=== PATIENT | male | born 1980 | race Caucasian/White ===

== ENCOUNTER 2018-03-23 11:35 | Inpatient (IN) | payer BC ==
[~2018-03-23] VITALS: Ht 180.3 cm; Wt 71.0 kg
[2018-03-23] MEDS ORDERED: clonazePAM 1 MG TAB PO ONE ×3 (12:00→19:15)
[2018-03-23] MEDS ORDERED: diphenhydrAMINE INJ 50MG/ML VIAL (J1200) As Ordered ONE (12:39)
[2018-03-23] MEDS ORDERED: HALOPERIDOL 5 MG/ML VIAL (J1630) As Ordered ONE (12:39)
[2018-03-23] MEDS ORDERED: diphenhydrAMINE INJ 50MG/ML VIAL (J1200) IM ONE (12:45)
[2018-03-23] MEDS ORDERED: HALOPERIDOL 5 MG/ML VIAL (J1630) IM ONE (12:45)
[2018-03-23 13:00] LABS: HEMATOCRIT 50.8 % (42.0-52.0); HEMOGLOBIN 17.1 g/dl (13.5-17.5); MEAN CORPUSCULAR HEMOGLOBIN 30.3 pg (27.0-33.0); MEAN CORPUSCULAR HGB CONC 33.7 g/dl (32.0-36.5); MEAN CORPUSCULAR VOLUME 90.1 fl (80.0-96.0); PLATELET COUNT, AUTOMATED 257 10^3/uL (150-450); RED BLOOD COUNT 5.64 10^6/uL (4.30-6.10); WHITE BLOOD COUNT 9.7 10^3/uL (4.0-10.0)
[2018-03-23 13:40] LABS: ACETAMINOPHEN LEVEL < 2.0 UG/ML (10.0-30.0); ALBUMIN 4.8 GM/DL (3.2-5.2); ALT/SGPT 28 U/L (12-78); BILIRUBIN,DIRECT 0.2 MG/DL (0.0-0.2); BILIRUBIN,TOTAL 0.8 MG/DL (0.2-1.0); BLOOD UREA NITROGEN 15 MG/DL (7-18); CARBON DIOXIDE LEVEL 16 MEQ/L (21-32); CHLORIDE LEVEL 104 MEQ/L (98-107); ETHYL ALCOHOL (ETHANOL) < 0.003 % (0.000-0.010); GLOMERULAR FILTRATION RATE > 60.0 (>60); GLUCOSE, FASTING 121 MG/DL (70-100); POTASSIUM SERUM 3.9 MEQ/L (3.5-5.1); SALICYLATE LEVEL 4.2 MG/DL (5.0-30.0); SODIUM LEVEL 139 MEQ/L (136-145); TOTAL PROTEIN 7.9 GM/DL (6.4-8.2)
[2018-03-23 16:30] LABS: VENOUS BASE EXCESS -2.7 (-2.0-2.0); VENOUS HCO3 21.8 MEQ/L (23.0-27.0); VENOUS O2 SATURATION 97.8 % (60.0-80.0); VENOUS PARTIAL PRESSURE CO2 37.5 mmHg (38.0-50.0); VENOUS PARTIAL PRESSURE O2 107.8 mmHg (30.0-50.0); VENOUS PH 7.383 UNITS (7.330-7.430); VENOUS STANDARD HCO3 22.3 MEQ/L
[2018-03-23] MEDS ORDERED: diphenhydrAMINE 25 MG CAP PO ONE (16:30)
[2018-03-23 16:54] LABS: AMPHETAMINES LEVEL URINE NEGATIVE (NEGATIVE); BARBITURATES URINE NEGATIVE (NEGATIVE); BENZODIAZEPINES URINE POSITIVE (NEGATIVE); CANNABINOIDS URINE POSITIVE (NEGATIVE); COCAINE METABOLITE URINE NEGATIVE (NEGATIVE); METHADONE URINE NEGATIVE (NEGATIVE); OPIATES URINE NEGATIVE (NEGATIVE); PHENCYCLIDINE URINE NEGATIVE (NEGATIVE)
[2018-03-23 19:01] LABS: BLOOD UREA NITROGEN 17 MG/DL (7-18); CALCIUM LEVEL 8.8 MG/DL (8.5-10.1); CARBON DIOXIDE LEVEL 27 MEQ/L (21-32); CHLORIDE LEVEL 105 MEQ/L (98-107); GLOMERULAR FILTRATION RATE > 60.0 (>60); GLUCOSE, FASTING 90 MG/DL (70-100); POTASSIUM SERUM 4.3 MEQ/L (3.5-5.1); SODIUM LEVEL 140 MEQ/L (136-145)
[2018-03-23] MEDS ORDERED: NICOTINE 21MG/24HR 1 EA TRANSDERMAL TD ONE (19:45)
[2018-03-23] MEDS ORDERED: NICOTINE POLACRILEX 2 MG GUM PO ONE (19:45)
[2018-03-23] MEDS ORDERED: OLANZapine ORAL DISINTEGRATING TAB 5MG PO PRN (20:00)
[2018-03-23] MEDS ORDERED: MAALOX 30 ML SUSP *UDC PO PRN (20:00)
[2018-03-23] MEDS ORDERED: MOM 30ML SUSPENSION UDC PO PRN (20:00)
[2018-03-23 23:31] VITALS: BP 110/67
[2018-03-24] MEDS: LORazepam 2 MG TAB PO PRN ×2 (05:52→20:17)
[2018-03-24] MEDS: NICOTINE 21MG/24HR 1 EA TRANSDERMAL TD SCH (08:29)
--- NOTE | 2018-03-24 10:27 | HPEPDOC ---
[facility] Medical History & Physical Date of Admission Mar 23, 2018 History and Physical PCP: None ATTENDING: Dr. Alfredo Wakefield HPI: 37 yo M admitted to [facility] for unspecified psychosis, being medically examined today. No acute medical complaints today. Denies any fevers, chills, weakness, fatigue, MCCORMICK, CP, SOB, cough, palpitations, abdominal pain, N/V/D or changes in bowel or bladder habits. PMHx: Anxiety Depression History of SI PSHX: Denies SOCHX: Resides in: [facility] Marital Status: Kids: 2 Employment: [employer] Tobacco use: 2-1/2 packs per day ETOH: 3 drinks per month Illicit Drugs: Marijuana IV Drug Use: Denies Tattoos done unprofessionally: Denies FAMHX: Mother: Alive, well Father: Alive, well Siblings: Alive, well Children: Alive, well Unexpected deaths due to medical reasons: None. ROS: As noted in HPI, otherwise 11pt ROS of systems reviewed and unremarkable. PE: GEN: 37 yo M, appears stated age. Appears unkept. No acute distress. Alert and oriented x 3. Avoids eye contact. HEENT: Normocephalic, atraumatic. Pupils are equal, round, and reactive to light. Extraocular movements are intact. No nystagmus appreciated. Sclera are nonicteric. Conjunctiva without injection. Nose midline. Nasal turbinates without bogginess. EACs both patent BL. TMs both visualized and aguilar with good cone of light, no bulging or erythema. No facial asymmetry. Moist mucous membranes. Dentition fair. Pharynx pink and moist, no cobblestoning. Neck supple, trachea midline. No lymphadenopathy or thyromegaly appreciated. CHEST: Regular rate and rhythm, +S1, +S2 LUNGS: Clear to auscultation bilaterally. No wheezes, rales, or rhonchi. Breathing appears symmetric and easy. Patient is speaking in full sentences. No accessory muscle use. ABD: Round, soft, non-tender, non-distended. +Bowel sounds throughout. No rebound or guarding. No costovertebral angle tenderness. EXT: Pulses 2+ bilaterally dorsalis pedis and radial. No lower extremity edema appreciated. SKIN: [place], dry, warm. Capillary refill <2sec. No rashes. NEURO: Alert and oriented x 3. Cranial nerves III-XII are intact. No focal deficits appreciated. EKG: Pending A&P: 37 yo M admitted to [facility] for unspecified psychosis 1. Psych. Plan per Psychiatry. Obtain baseline EKG to assure the safety of psychiatric medications as they can prolong the QT interval. 2. Nicotine dependence. Patch available. 3. Substance use. Management as per psychiatry. 4. Follow up with PCP on discharge. 5. Staff member Zay present throughout exam. Vital Signs Vital Signs Date Time Temp Pulse Resp B/P (MAP) Pulse Ox O2 Delivery O2 Flow Rate FiO2 03/23/18 23:31 98.7 75 16 110/67 (81) 03/23/18 22:53 99 Room Air Laboratory Data Labs 24H Laboratory Tests 2 03/23/18 12:47: Nucleated Red Blood Cells % (auto) 0.0, Anion Gap 19H, Glomerular Filtration Rate > 60.0, Calcium Level 9.0, Aspartate Amino Transf (AST/SGOT) 24, Alanine Aminotransferase (ALT/SGPT) 28, Alkaline Phosphatase 101, Total Bilirubin 0.8, Direct Bilirubin 0.2, Total Protein 7.9, Albumin 4.8, Albumin/Globulin Ratio 1.55, Thyroid Stimulating Hormone (TSH) 1.450, Salicylates Level 4.2L, Acetaminophen Level < 2.0L, Ethyl Alcohol Level < 0.003 03/23/18 16:18: Blood Gas Bicarbonate Standard 22.3, Venous Blood pH 7.383, Venous Blood Partial Pressure CO2 37.5L, Venous Blood Partial Pressure O2 107.8H, Venous Blood Total Carbon Dioxide 23.0L, Venous Blood HCO3 21.8L, Venous Blood Oxygen Saturation 97.8H, Venous Blood Base Excess -2.7L, Osmolality 304H, Lactic Acid Level 1.0, Urine Amphetamines Screen NEGATIVE, Urine Benzodiazepines Screen POSITIVEH, Urine Opiates Screen NEGATIVE, Urine Methadone Screen NEGATIVE, Urine Barbiturates Screen NEGATIVE, Urine Phencyclidine Screen NEGATIVE, Urine Cocaine Metabolite Screen NEGATIVE, Urine Cannabinoids Screen POSITIVEH 03/23/18 18:22: Anion Gap 8, Glomerular Filtration Rate > 60.0, Calcium Level 8.8, Blood Urea Nitrogen 17, Creatinine 1.10, Sodium Level 140, Potassium Level 4.3, Chloride Level 105, Carbon Dioxide Level 27 CBC/BMP Laboratory Tests 03/23/18 12:47 Red Blood Count 5.64, Mean Corpuscular Volume 90.1, Mean Corpuscular Hemoglobin 30.3, Mean Corpuscular Hemoglobin Concent 33.7, Red Cell Distribution Width 12.5 03/23/18 18:22 Calcium Level 8.8 Home Medications No Active Prescriptions or Reported Meds Allergies Coded Allergies: No Known Drug Allergy (Verified Allergy, Unknown, 03/23/18) Lennie Kirk Mar 24, 2018 10:27
--- NOTE | 2018-03-24 12:23 | MHHPEPDOC ---
General Date Of Admission: Mar 23, 2018 Legal Status: 9.39 Chief Complaint "You do not know what I could do w/a cold barrel of a gun." History of Present Illness HISTORY OF THE PRESENT ILLNESS: Patient is a 37 -year-old , male, who was brought in by police after pick-up ordered at [facility] after pt presented to the walk-in clinic there agitated with a raised voice and threatening staff. Pt ED, [facility] stated that when pt was seen in session he endorsed SI (wanting to be ) and stated "You do not know know what I could do with the cold barrel of a gun." Pt in the ED denied intent for suicide b/c he has 2 kids 4 and 5 at home to care for. Pt was very agitated in the ED and had to be chemically and mechanically restrained due to stating "get me the fuck out of here... I am here voluntary" throwing chairs and soda and threatening staff. Pt after calming down stated he was upset b/c he keeps being put on the wait list by his outpatient psychiatrist and can't get medicine to help him with his anxiety. Attempted to get anxiety med from [place] PCP but refused. Pt's mother called by ED staff and stated pt upset due to being wait listed by psychiatrist. Pt seen today and states he's anxious all the time to the point he vomits every morning and doesn't know why. States the only thought the calms me down is "the thought of a cold barrel of a gun against my head b/c it signifies the end" yet denies that he's have thoughts of suicide. Pt appears very irritable, depressed, agitated, anxious, emotionally reactive. States he's a hermit due to fear of leaving home even though he does leave his home to go to work. Endorses intrusive thoughts that bad things are going to happen to him "I'm scared every time on get on the road b/c I fear someone's going to murder me... they're such crazy drivers." Endorses belief that people don't like him and are judging him negatively and doesn't want to talk to people yet wants them to talk to him. Denies SI/HI, hallucinations, delusions. Psychiatric Review of Systems Depression (2 or more weeks): depressed mood, difficulty concentrating, suicidal thoughts [place] (4 or more days of): denies Psychosis: denies PTSD: denies Anxiety: situational anxiety, stressor related anxiety Anxiety/ 6 months or more of: restlessness, keyed up, difficulty concentrating, irritability Past Psychiatric History Previous Psychiatric Diagnosis: depression, anxiety Previous Psychiatric Admissions: hospitalized in 20's s/p OD Suicide Attempts: hospitalized in 20's s/p OD Psychiatric Follow-up: [facility] Psychiatric medications: SSRI's, effexor, abilify ... "only [employer] works" Past Medical History Medical Problems denies Head Injury: No Seizures: No Hospitalizations: Yes Surgeries: No Family Medical/Psychiatric HX Medical Problems noncontributory Psychiatric Disorders: No Addiction: No Suicide Attemps/Completions: No Addiction History nicotine, other (u tox pos cannabis (u tox positive benzos as utox taken after chemically restrained using ativan)) Social History Childhood: born and raised in [place], 2 parent home, 2 younger brothers, good childhood Abuse/Trauma:bullied in school by "everyone" Current Living Situation: lives with kids Education: associate's degree in Arts and Science Employment: [employer] and works at [employer] Social Support: mother Legal: denies Marital: single, 2 kids 4 daughter and 5 son Mental Status Examination General Appearance: well groomed, ds/not appear stated age (older), 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 Build: average Demeanor: preoccupied, very figety, other (annoyed) Eye Contact: avoidant Activity: anxious, other (irritated) Behavior: cooperative, restless, other (annoyed) Speech: clear, spontaneous, reg/rate,rhythm,volume Mood: depressed, anxious, irritable Mood "anxious all the time" Affect: constricted, inappropriate, labile, anxious, other (severe cognitive distortions, for-telling, catastrophizing, all or nothing thinking) Thought Process: logical/linear, associative, depressed, intact Thought Content (Delusions): none reported, denies SI, HI, AVH Thought Content (Other): preoccupied, obsessional Thought Content (Aggressive): none reported Perception (Hallucinations): none reported Perception (Other): none reported Cognition (Impairment of): none reported Cognition(Intelligence Est.): average Oriented: Awake, Alert, Oriented times three Insight: fair Judgment: Fair Psychosis: Denies Diagnoses Anxiety d/o unspecified R/O OCD vs VALENTINE 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 States the only thought the calms me down is "the thought of a cold barrel of a gun against my head b/c it signifies the end" yet denies that he's have thoughts of suicide. Pt appears very irritable, depressed, agitated, anxious, emotionally reactive. States he's a hermit due to fear of leaving home even though he does leave his home to go to work. Endorses intrusive thoughts that bad things are going to happen to him "I'm scared every time on get on the road b/c I fear someone's going to murder me... they're such crazy drivers." Endorses belief that people don't like him and are judging him negatively and doesn't want to talk to people yet wants them to talk to him. D enies SI/HI, hallucinations, delusions. Initial Treatment Plan 1. Patient was admitted on a 9.39 status. 2. Complete history was obtained. 3. With patients permission, family will be contacted and database will be expanded. 4. Patients medication regimen will be reviewed and changed accordingly. 5. Patient will be provided with protected environment. 6. Patient will be treated with individual, group, and milieu therapies. 7. Patient will receive supportive psych-education. 8. Discharge planning will commence immediately. 9. Outpatient follow-up treatment will be strongly recommended. 10. The initial treatment plan will focus initially on: * Depression. * Risk for suicide. * Substance abuse. 11. zyprexa zydis 5mg tid, vistaril 50mg q6hr prn anxiety, prozac (never been on) 10mg daily. ESTIMATED LENGTH OF STAY: 7-9 DAYS. TIME SPENT COUNSELING AND COORDINATING INITIAL CARE: 60 minutes. Vital Signs Vital Signs Date Time Temp Pulse Resp B/P (MAP) Pulse Ox O2 Delivery O2 Flow Rate FiO2 03/23/18 23:31 98.7 75 16 110/67 (81) 03/23/18 22:53 99 Room Air Laboratory Data 24H Labs Laboratory Tests 2 03/23/18 12:47: Nucleated Red Blood Cells % (auto) 0.0, Anion Gap 19H, Glomerular Filtration Rate > 60.0, Calcium Level 9.0, Aspartate Amino Transf (AST/SGOT) 24, Alanine Aminotransferase (ALT/SGPT) 28, Alkaline Phosphatase 101, Total Bilirubin 0.8, Direct Bilirubin 0.2, Total Protein 7.9, Albumin 4.8, Albumin/Globulin Ratio 1.55, Thyroid Stimulating Hormone (TSH) 1.450, Salicylates Level 4.2L, Acetaminophen Level < 2.0L, Ethyl Alcohol Level < 0.003 03/23/18 16:18: Blood Gas Bicarbonate Standard 22.3, Venous Blood pH 7.383, Venous Blood Partial Pressure CO2 37.5L, Venous Blood Partial Pressure O2 107.8H, Venous Blood Total Carbon Dioxide 23.0L, Venous Blood HCO3 21.8L, Venous Blood Oxygen Saturation 97.8H, Venous Blood Base Excess -2.7L, Osmolality 304H, Lactic Acid Level 1.0, Urine Amphetamines Screen NEGATIVE, Urine Benzodiazepines Screen POSITIVEH, Urine Opiates Screen NEGATIVE, Urine Methadone Screen NEGATIVE, Urine Barbiturates Screen NEGATIVE, Urine Phencyclidine Screen NEGATIVE, Urine Cocaine Metabolite Screen NEGATIVE, Urine Cannabinoids Screen POSITIVEH 03/23/18 18:22: Anion Gap 8, Glomerular Filtration Rate > 60.0, Calcium Level 8.8, Blood Urea Nitrogen 17, Creatinine 1.10, Sodium Level 140, Potassium Level 4.3, Chloride Level 105, Carbon Dioxide Level 27 CBC/BMP Laboratory Tests 03/23/18 12:47 Red Blood Count 5.64, Mean Corpuscular Volume 90.1, Mean Corpuscular Hemoglobin 30.3, Mean Corpuscular Hemoglobin Concent 33.7, Red Cell Distribution Width 12.5 03/23/18 18:22 Calcium Level 8.8 Medications No Active Prescriptions or Reported Meds Allergies Coded Allergies: No Known Drug Allergy (Verified Allergy, Unknown, 03/23/18) VALERIA MAHAN DO Mar 24, 2018 12:23 pm
[2018-03-24] MEDS ORDERED: hydrOXYzine 50 MG TAB PO PRN (12:30)
[2018-03-24] MEDS ORDERED: FLUoxetine 10 MG CAP PO ONE (12:30)
[2018-03-24] MEDS: OLANZapine ORAL DISINTEGRATING TAB 5MG PO SCH ×2 (15:54→20:18)
--- NOTE | 2018-03-24 16:29 | ECGEPIP ---
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
[2018-03-24 18:00] VITALS: BP 139/88
[2018-03-24] MEDS: traZODone 50 MG TAB PO PRN (20:52)
[2018-03-25 06:20] VITALS: BP 126/69
--- NOTE | 2018-03-25 07:23 | REP ---
Right hand four views: There is no fracture or dislocation. No calcifications or foreign bodies. The fifth digit PIP is maintained in flexion. This may indicate ligamentous injury. Impression: Question ligamentous injury at the fifth digit PIP. No fracture or dislocation. Electronically Signed by Martin Stewart MD 03/25/2018 07:14 A
[2018-03-25] MEDS: NICOTINE 21MG/24HR 1 EA TRANSDERMAL TD SCH (08:14)
[2018-03-25] MEDS: OLANZapine ORAL DISINTEGRATING TAB 5MG PO SCH ×3 (08:14→20:39)
[2018-03-25] MEDS: FLUoxetine 10 MG CAP PO SCH (08:14)
--- NOTE | 2018-03-25 10:56 | MHIPNPDOC ---
[facility] Progress Note Progress Note DATE OF SERVICE: 03/25/18 HISTORY: Patient is a 37 -year-old , male, who was brought in by police after pick-up ordered at [facility] after pt presented to the walk-in clinic there a gitated with a raised voice and threatening staff. Pt ED, [facility] stated that when pt was seen in session he endorsed SI (wanting to be ) and stated "You do not know know what I could do with the cold barrel of a gun." Pt in the ED denied intent for suicide b/c he has 2 kids 4 and 5 at home to care for. Pt was very agitated in the ED and had to be chemically and mechanically restrained due to stating "get me the fuck out of here... I am here voluntary" throwing chairs and soda and threatening staff. Pt after calming down stated he was upset b/c he keeps being put on the wait list by his outpatient psychiatrist and can't get medicine to help him with his anxiety. Attempted to get anxiety med from [place] PCP but refused. Pt's mother called by ED staff and stated pt upset due to being wait listed by psychiatrist. Pt seen today and states he's anxious all the time to the point he vomits every morning and doesn't know why. States the only thought the calms me down is "the thought of a cold barrel of a gun against my head b/c it signifies the end" yet denies that he's have thoughts of suicide. Pt appears very irritable, depressed, agitated, anxious, emotionally reactive. States he's a hermit due to fear of leaving home even though he does leave his home to go to work. Endorses intrusive thoughts that bad things are going to happen to him "I'm scared every time on get on the road b/c I fear someone's going to murder me... they're such crazy drivers." Endorses belief that people don't like him and are judging him negatively and doesn't want to talk to people yet wants them to talk to him. Denies SI/HI, hallucinations, delusions. VITAL SIGNS: See below. NEW TEST RESULTS: See below. CURRENT MEDICATIONS: See below. MENTAL STATUS EXAMINATION: General Appearance: well groomed, ds/not appear stated age (older), 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 Build: average Demeanor: less preoccupied, very figety Eye Contact: fair Activity: less anxious Behavior: cooperative, less restless Speech: clear, spontaneous, reg/rate,rhythm,volume Mood: depressed, anxious, no longer irritable Mood "better" Affect: less constricted, appropriate, less anxious, other (severe cognitive distortions, for-telling, catastrophizing, all or nothing thinking) Thought Process: logical/linear, depressed, intact Thought Content (Delusions): none reported, denies SI, HI, AVH Thought Content (Other): preoccupied, obsessional Thought Content (Aggressive): none reported Perception (Hallucinations): none reported Perception (Other): none reported Cognition (Impairment of): none reported Cognition(Intelligence Est.): average Oriented: Awake, Alert, Oriented times three Insight: fair Judgment: Fair Psychosis: Denies DIAGNOSES: Anxiety d/o unspecified R/O OCD vs VALENTINE 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 Endorses cough as "I'm a heavy smoker" and agreeable to cepacol prn. States he's eating and sleeping much better. Less overt cognitive distortions. States he's working on focusing on today and what he's doing here rather than thinking of anything else. States he's trying to tell jokes. Pt appears less irritable, agitated, anxious, emotionally reactive. Endorses intrusive thoughts that bad things are going to happen to him "I'm scared every time on get on the road b/c I fear someone's going to murder me... they're such crazy drivers." Endorses belief that people don't lik e him and are judging him negatively and doesn't want to talk to people yet wants them to talk to him. Denies SI/HI, hallucinations, delusions. Pt's mother contacted by d/c workforce planner who would like to take pt and his kids back to [place] where she and the rest of his family is but pt states he would prefer to stay here b/c he has a good job and doesn't want her to take complete care of him preferring to remain independent. Will think about it though. MANAGEMENT PLAN: continue current plan Medications: zyprexa zydis 5mg tid vistaril 50mg q6hr prn anxiety prozac 10mg daily TIME SPENT: 30 minutes. Vital Signs Vital Signs Date Time Temp Pulse Resp B/P (MAP) Pulse Ox O2 Delivery O2 Flow Rate FiO2 03/25/18 06:20 99.2 71 18 126/69 (88) 03/23/18 22:53 99 Room Air Current Medications Current Medications Acetaminophen (Tylenol Tab) 650 mg Q6HP PRN PO HEADACHE or DISCOMFORT; Start 03/23/18 at 20:00 Al Hydrox/Mg Hydrox/Simethicone (Mylanta) 30 ml Q4HP PRN PO HEARTBURN/INDIGESTION; Start 03/23/18 at 20:00 Fluoxetine HCl (PROzac) 10 mg DAILY PO Last administered on 03/25/18 08:14; Start 03/25/18 at 09:00 Home Med (Med Rec Complete!) ASDIRECTED XX ; Start 03/23/18 at 19:45; Stop 03/23/18 at 19:48; Status DC Hydroxyzine HCl (Atarax) 50 mg Q6HP PRN PO ANXIETY/AGITATION; Start 03/24/18 at 12:30 Lorazepam (Ativan) 2 mg Q6HP PRN PO ANXIETY/AGITATION Last administered on 03/24/18at 20:17; Start 03/23/18 at 20:00 Magnesium Hydroxide (Milk Of Magnesia) 30 ml DAILYPRN PRN PO CONSTIPATION; Start 03/23/18 at 20:00 Nicotine (Nicoderm Cq 21mg) 1 patch DAILY TD Last administered on 03/25/18at 08:14; Start 03/24/18 at 09:00 Olanzapine (ZyPREXA ZYDIS) 5 mg Q6HP PRN PO ANXIETY/AGITATION Last administered on 03/24/18at 05:52; Start 03/23/18 at 20:00 Olanzapine (ZyPREXA ZYDIS) 5 mg TID PO Last administered on 03/25/18 08:14; Start 03/24/18 at 16:00 Trazodone HCl (Desyrel) 50 mg QHSP PRN PO INSOMNIA Last administered on 03/24/18at 20:52; Start 03/23/18 at 20:00 Allergies Coded Allergies: No Known Drug Allergy (Verified Allergy, Unknown, 03/23/18) VALERIA MAHAN DO Mar 25, 2018 10:56 am
[2018-03-25] MEDS ORDERED: CEPACOL LOZENGE PO PRN (11:00)
[2018-03-25] MEDS: ACETAMINOPHEN TAB 650MG DOSE (2X325MG) PO PRN (14:14)
[2018-03-25 18:17] VITALS: BP 128/73
[2018-03-25] MEDS: traZODone 50 MG TAB PO PRN (21:50)
[2018-03-25] MEDS: LORazepam 2 MG TAB PO PRN (21:51)
[2018-03-26 06:36] VITALS: BP 124/59
[2018-03-26] MEDS: FLUoxetine 10 MG CAP PO SCH (09:06)
[2018-03-26] MEDS: NICOTINE 21MG/24HR 1 EA TRANSDERMAL TD SCH (09:06)
[2018-03-26] MEDS: OLANZapine ORAL DISINTEGRATING TAB 5MG PO SCH ×3 (09:06→21:04)
[2018-03-26] MEDS: LORazepam 2 MG TAB PO PRN (09:29)
[2018-03-26 18:00] VITALS: BP 150/90
[2018-03-26] MEDS: traZODone 50 MG TAB PO PRN (21:04)
[2018-03-27 06:00] VITALS: BP 119/57
[2018-03-27] MEDS: NICOTINE 21MG/24HR 1 EA TRANSDERMAL TD SCH (06:50)
[2018-03-27] MEDS: FLUoxetine 10 MG CAP PO SCH (08:45)
[2018-03-27] MEDS: ACETAMINOPHEN TAB 650MG DOSE (2X325MG) PO PRN (08:45)
[2018-03-27] MEDS: OLANZapine ORAL DISINTEGRATING TAB 5MG PO SCH ×3 (08:45→20:38)
[2018-03-27 18:00] VITALS: BP 138/94
[2018-03-27] MEDS: traZODone 50 MG TAB PO PRN (21:46)
[2018-03-27] MEDS: LORazepam 2 MG TAB PO PRN (23:06)
[2018-03-28 07:01] VITALS: BP 136/65
[2018-03-28] MEDS: NICOTINE 21MG/24HR 1 EA TRANSDERMAL TD SCH (08:12)
[2018-03-28] MEDS: FLUoxetine 10 MG CAP PO SCH (08:12)
[2018-03-28] MEDS: OLANZapine ORAL DISINTEGRATING TAB 5MG PO SCH ×3 (08:12→20:07)
--- NOTE | 2018-03-28 09:27 | MHIPNPDOC ---
[facility] Progress Note Progress Note DATE OF SERVICE: 03/28/18 HISTORY: Patient is a 37 -year-old , male, who was brought in by police after pick-up ordered at [facility] after pt presented to the walk-in clinic there a gitated with a raised voice and threatening staff. Pt ED, [facility] stated that when pt was seen in session he endorsed SI (wanting to be ) and stated "You do not know know what I could do with the cold barrel of a gun." Pt in the ED denied intent for suicide b/c he has 2 kids 4 and 5 at home to care for. Pt was very agitated in the ED and had to be chemically and mechanically restrained due to stating "get me the fuck out of here... I am here voluntary" throwing chairs and soda and threatening staff. Pt after calming down stated he was upset b/c he keeps being put on the wait list by his outpatient psychiatrist and can't get medicine to help him with his anxiety. Attempted to get anxiety med from [facility] but refused. Pt's mother called by ED staff and stated pt upset due to being wait listed by psychiatrist. Pt seen today and states he's anxious all the time to the point he vomits every morning and doesn't know why. States the only thought the calms me down is "the thought of a cold barrel of a gun against my head b/c it signifies the end" yet denies that he's have thoughts of suicide. Pt appears very irritable, depressed, agitated, anxious, emotionally reactive. States he's a hermit due to fear of leaving home even though he does leave his home to go to work. Endorses intrusive thoughts that bad things are going to happen to him "I'm scared every time on get on the road b/c I fear someone's going to murder me... they're such crazy drivers." Endorses belief that people don't like him and are judging him negatively and doesn't want to talk to people yet wants them to talk to him. Denies SI/HI, hallucinations, delusions. VITAL SIGNS: See below. NEW TEST RESULTS: See below. CURRENT MEDICATIONS: See below. MENTAL STATUS EXAMINATION: General Appearance: well groomed, ds/not appear stated age (older), own clothing Build: average Demeanor: less preoccupied, calmer Eye Contact: fair Activity: less anxious Behavior: cooperative, less restless Speech: clear, spontaneous, reg/rate,rhythm,volume Mood: less depressed, less anxious, no longer irritable Mood "alright" Affect: less constricted, appropriate, less anxious, improving cognitive distortions, for-telling, catastrophizing, all or nothing thinking Thought Process: logical/linear, less depressed, intact Thought Content (Delusions): none reported, denies SI, HI, AVH Thought Content (Other): preoccupied, obsessional Thought Content (Aggressive): none reported Perception (Hallucinations): none reported Perception (Other): none reported Cognition (Impairment of): none reported Cognition(Intelligence Est.): average Oriented: Awake, Alert, Oriented times three Insight: fair Judgment: Fair Psychosis: Denies DIAGNOSES: Anxiety d/o unspecified R/O OCD vs VALENTINE Major Depressive d/o recurrent w/o psychosis cannabis use d/o ASSESSMENT:Pt seen today and states he feels "alright" and had a good weekend. States he's tolerating his medication and feels it's beneficial. States he's eating and sleeping well. Less overt cognitive distortions. States he had a good weekend until last night as he got a veggie burger that he didn't like and left him "hangry." Pt anxious about discontinuation of benzos for anxiety as states he's trying not to take them but feels he needs them at times. Continues to work on focusing on today and what he's doing here rather than thinking of anything else. Pt appears less irritable, agitated, anxious, emotionally reactive. Improved intrusive thoughts that bad things are going to happen to him." Denies SI/HI, hallucinations, delusions. Pt's mother contacted by d/c conservation planner who would like to take pt and his kids back to [place] where she and the rest of his family is but pt states he would prefer to stay here b/c he has a good job and doesn't want her to take complete care of him preferring to remain independent. Will think about it though. MANAGEMENT PLAN: continue current plan Medications: zyprexa zydis 5mg tid vistaril 50mg q6hr prn anxiety prozac 10mg daily TIME SPENT: 30 minutes. Vital Signs Vital Signs Date Time Temp Pulse Resp B/P (MAP) Pulse Ox O2 Delivery O2 Flow Rate FiO2 03/28/18 07:01 98.9 73 14 136/65 (88) 03/23/18 22:53 99 Room Air Current Medications Current Medications Acetaminophen (Tylenol Tab) 650 mg Q6HP PRN PO HEADACHE or DISCOMFORT Last administered on 03/27/18 08:45; Start 03/23/18 at 20:00 Al Hydrox/Mg Hydrox/Simethicone (Mylanta) 30 ml Q4HP PRN PO HEARTBURN/INDIGESTION; Start 03/23/18 at 20:00 Cetylpyridinium Chloride (Cepacol) 1 beny Q2HP PRN PO SORE THROAT; Start 03/25/18 at 11:00 Fluoxetine HCl (PROzac) 10 mg DAILY PO Last administered on 03/28/18 08:12; Start 03/25/18 at 09:00 Home Med (Med Rec Complete!) ASDIRECTED XX ; Start 03/23/18 at 19:45; Stop 03/23/18 at 19:48; Status DC Hydroxyzine HCl (Atarax) 50 mg Q6HP PRN PO ANXIETY/AGITATION; Start 03/24/18 at 12:30 Lorazepam (Ativan) 2 mg Q6HP PRN PO ANXIETY/AGITATION Last administered on 03/27/18at 23:06; Start 03/23/18 at 20:00 Magnesium Hydroxide (Milk Of Magnesia) 30 ml DAILYPRN PRN PO CONSTIPATION; Start 03/23/18 at 20:00 Nicotine (Nicoderm Cq 21mg) 1 patch DAILY TD Last administered on 03/28/18at 08:12; Start 03/24/18 at 09:00 Olanzapine (ZyPREXA ZYDIS) 5 mg Q6HP PRN PO ANXIETY/AGITATION Last administered on 03/24/18 05:52; Start 03/23/18 at 20:00 Olanzapine (ZyPREXA ZYDIS) 5 mg TID PO Last administered on 03/28/18at 08:12; Start 03/24/18 at 16:00 Trazodone HCl (Desyrel) 50 mg QHSP PRN PO INSOMNIA Last administered on 2/17/19at 21:46; Start 03/23/18 at 20:00 Allergies Coded Allergies: No Known Drug Allergy (Verified Allergy, Unknown, 03/23/18) VALERIA MAHAN DO Mar 28, 2018 9:07 am
[2018-03-28 18:00] VITALS: BP 130/86
[2018-03-28] MEDS: traZODone 50 MG TAB PO PRN (21:59)
--- NOTE | 2018-03-29 06:29 | MHIPN ---
DATE OF SERVICE: 03/26/2018 The patient today states "I am doing okay" but then he admits that he is still feeling "a little down." He says he slept good. He denies a feeling suicidal or homicidal anymore. He feels that his problem is that he feels lonely a lot and this is why he gets depressed. MENTAL STATUS EXAM: He is alert and oriented times three. Eye contact is fairly good. He is verbally spontaneous. There is no formal thought disorder noted. Mood is " a little down." Affect is full range and appropriate. He is not psychotic. He is denying being suicidal or homicidal today. Concentration is fair. Memory is intact. Insight and judgment poor. DIAGNOSES; 1. Anxiety disorder, unspecified. 2. Major depressive disorder, recurrent without psychotic symptoms. 3. Rule out obsessive compulsive disorder (OCD) versus generalized anxiety disorder. 4. Cannabis use disorder. TREATMENT PLAN: We will continue the patient on his current medications and we will adjust as indicated. The patient apparently was just started on the Prozac and we discussed that he really needs to give the medication some more time to see further clinical response.
--- NOTE | 2018-03-29 06:35 | MHIPN ---
DATE OF VISIT: 03/27/2018 The patient today states "I am feeling fantastic." He says that he is trying not to take any benzodiazepines and states "and I am doing a good job of it." He says he slept good, he is denying suicidal or homicidal ideations. MENTAL STATUS EXAM: He is alert and oriented times three. Eye contact is fair. Psychomotor activity is normal. He is verbally spontaneous. There is no formal thought disorder noted. Mood is good. Affect is full range and appropriate. He is not psychotic, suicidal or homicidal. Concentration is fair. Memory is intact. Insight and judgment is fair. DIAGNOSES: 1. Anxiety disorder, unspecified. 2. Major depressive disorder recurrent without psychosis. 3. Rule out obsessive compulsive disorder (OCD) versus generalized anxiety disorder. 4. Cannabis use disorder. TREATMENT PLAN: At this point we will continue to monitor the patient for continued resolution of any suicidal ideations and for elevation of mood. We will continue to titrate medication as indicated.
[2018-03-29 06:41] VITALS: BP 122/78
[2018-03-29] MEDS: FLUoxetine 10 MG CAP PO SCH (08:09)
[2018-03-29] MEDS: NICOTINE 21MG/24HR 1 EA TRANSDERMAL TD SCH (08:09)
[2018-03-29] MEDS: OLANZapine ORAL DISINTEGRATING TAB 5MG PO SCH (08:10)
--- NOTE | 2018-03-29 09:13 | MHDSPDOC ---
[facility] Discharge Summary Discharge Summary DATE OF ADMISSION: Mar 23, 2018 at 20:00 DATE OF DISCHARGE: Mar 29, 2018 DISCHARGE DIAGNOSES: VALENTINE Major Depressive d/o recurrent w/o psychosis cannabis use d/o REASON FOR ADMISSION: Patient is a 37 -year-old , male, who was brought in by police after pick-up ordered at [facility] after pt presented to the walk-in clinic there agitated with a raised voice and threatening staff. Pt ED, [facility] stated that when pt was seen in session he endorsed SI (wanting to be ) and stated "You do not know know what I could do with the cold barrel of a gun." Pt in the ED denied intent for suicide b/c he has 2 kids 4 and 5 at home to care for. Pt was very agitated in the ED and had to be chemically and mechanically restrained due to stating "get me the fuck out of here... I am here voluntary" throwing chairs and soda and threatening staff. Pt after calming down stated he was upset b/c he keeps being put on the wait list by his outpatient psychiatrist and can't get medicine to help him with his anxiety. Attempted to get anxiety med from [facility] but refused. Pt's mother called by ED staff and stated pt upset due to being wait listed by psychiatrist. Pt seen today and states he's anxious all the time to the point he vomits every morning and doesn't know why. States the only thought the calms me down is "the thought of a cold barrel of a gun against my head b/c it signifies the end" yet denies that he's have thoughts of suicide. Pt appears very irritable, depressed, agitated, anxious, emotionally reactive. States he's a hermit due to fear of leaving home even though he does leave his home to go to work. Endorses intrusive thoughts that bad things are going to happen to him "I'm scared every time on get on the road b/c I fear someone's going to murder me... they're such crazy drivers." Endorses belief that people don't like him and are judging him negatively and doesn't want to talk to people yet wants them to talk to him. Denies SI/HI, hallucinations, delusions. CONSULTANTS INVOLVED: none TESTS: Right hand four views: There is no fracture or dislocation. No calcifications or foreign bodies. The fifth digit PIP is maintained in flexion. This may indicate ligamentous injury. Impression: Question ligamentous injury at the fifth digit PIP. No fracture or dislocation. TREATMENT AND PROGRESS ON THE UNIT : Pt was admitted to [facility], seen for psychiatric assessment and started on prozac 10mg daily for mood and anxiety and zyprexa 5mg tid anxiety/agitation. He was provided vistaril 50mg q6hr prn anxiety and trazodone 50mg qhs prn insomnia. Pt found his medications beneficial and tolerated them well. He attended groups daily during his stay. His symptoms improved with treatment. His cognitive distortions improved greatly On day of discharge he denied depression, anxiety, insomnia, SI/HI, aldrich llucinations, delusions. He was discharged home with follow-up at [facility]. He felt safe for discharge. DISCHARGE ASSESSMENT: Pt seen today and states he feels "good" and is looking forward to going home and being with his kids. States he's tolerating his medication and feels it's beneficial. States he's eating and sleeping well. Endorses greatly improved cognitive distortions. Pt attended groups during his stay, learned coping skills, and found them beneficial. He is pleasant, calm, and cooperative. Pt endorsing pain from punching wall prior admission where rt PIP joint is and advised to rest hand and use motrin prn pain. States zyprexa is very beneficial for anxiety/agitation as he feels much more calm with bright affect. Denies depression, anxiety, insomnia, SI/HI, hallucinations, delusions. Feels safe to be discharged home. He has a supportive family. MENTAL STATUS EXAMINATION ON DISCHARGE: General Appearance: well groomed, ds/not appear stated age (older), own clothing Build: average Demeanor: cooperative, calm Eye Contact: good Activity: calm Behavior: cooperative, pleasant Speech: clear, spontaneous, reg/rate,rhythm,volume Mood: euthymic, full, bright Mood "good" Affect: euthymic, full, bright Thought Process: logical/linear, intact, greatly improved cognitive distortions Thought Content (Delusions): none reported, denies SI, HI, AVH Thought Content (Other): none reported Thought Content (Aggressive): none reported Perception (Hallucinations): none reported Perception (Other): none reported Cognition (Impairment of): none reported Cognition(Intelligence Est.): average Oriented: Awake, Alert, Oriented times three Insight: good Judgment: good Psychosis: Denies MEDICATIONS ON DISCHARGE: zyprexa zydis 5mg tid vistaril 50mg q6hr prn anxiety prozac 10mg daily PLAN/FOLLOWUP ARRANGEMENTS: d/c home with follow-up at [facility]. The amount of time spent in the coordination of care for this patient was approximately 30 minutes. Vital Signs/I&Os Vital Signs Date Time Temp Pulse Resp B/P (MAP) Pulse Ox O2 Delivery O2 Flow Rate FiO2 03/29/18 06:41 98.5 67 16 122/78 (93) 03/23/18 22:53 99 Room Air Medications No Active Prescriptions or Reported Meds Allergies Coded Allergies: No Known Drug Allergy (Verified Allergy, Unknown, 03/23/18) VALERIA MAHAN DO Mar 29, 2018 09:13
[2018-03-29] MEDS ORDERED: OLAN5ZYD PO (09:15)
[2018-03-29] MEDS ORDERED: TRAZO50TA PO (09:15)
[2018-03-29] MEDS ORDERED: HYDRO50TAB PO (09:15)
[2018-03-29] MEDS ORDERED: PROZ10CA7 PO (09:15)
== END 2018-03-29 11:30 | disposition home or self-care (01) | DRG 756 ==
LOC: M ED 11:35 → M ED INP 20:00 → M PSY 23:07
PROVIDERS: ADMIT Psychiatry & Neurology Psychiatry; ATTEND Psychiatry & Neurology Psychiatry
DX: F41.1 Generalized anxiety disorder (principal); F33.9 Major depressive disorder, recurrent, unspecified; R45.851 Suicidal ideations; F12.90 Cannabis use, unspecified, uncomplicated; F17.200 Nicotine dependence, unspecified, uncomplicated

== ENCOUNTER 2018-11-29 19:00 | Emergency (ER) | payer BC ==
[~2018-11-29] VITALS: Ht 180.3 cm; Wt 75.0 kg
[~2018-11-29 19:00] MED LIST: HYDR1TAB33 PO; OLAN5ZYD PO; PROZ10CA7 PO; TRAZ1TAB10 PO
[2018-11-29] MEDS ORDERED: BUSP15TA47 (19:17)
[2018-11-29] MEDS ORDERED: TRAZ-252 (19:17)
[2018-11-29] MEDS ORDERED: BUPR300T34 (19:17)
[2018-11-29] MEDS ORDERED: BUSP10TA (19:17)
[2018-11-29] MEDS ORDERED: CLON1TAB8 (19:17)
[2018-11-29] MEDS ORDERED: GABA-845 (19:17)
[2018-11-29] MEDS ORDERED: NICOTINE 21MG/24HR 1 EA TRANSDERMAL TD ONE (21:30)
--- NOTE | 2018-11-29 21:51 | ED PDOC ---
Provider Note Phone consultation undertaken for patient in question, the patient is a 38-year-old man with a history of mental health problems that had a pickup order called by his psychiatrist at the [facility], the patient was observed and interviewed he reported that he had no suicidal or homicidal ideation and that he was contemplating going to a voluntary long-term trauma related program at the [facility] but was unclear as to why he was brought to the emergency room. He does admit to having some worsening symptoms of anxiety and depression and spoke to his counselor today the [facility]. The reported pickup order had been for reported suicidal homicidal ideation, however, as reported by PSA worker contact with the patient's mother who is very close to him and will be taking care of the patient children when he goes to a residential inpatient voluntary program in the [facility] reports that he is been doing well and that although he has symptoms he has not been alluding or omitted to any suicidal or homicidal ideation. It was relayed to me that she reported that she had no concerns about his safety, and independently confirmed the patient's account of today's events, further suggesting that the patient was brought in out of abundance of caution. After reviewing the information and the collateral information gathered as well as the reports of no suicidal or homicidal ideation, there is not enough information to ethically justify involuntary commitment, he does have chronic risk factors of previous diagnoses and some substance use, however, the pickup order itself cannot justify removing the patient's rights. He participated reportedly well w ith discharge planning and was able to report he has an [facility] in the next [facility], he declines voluntary admission and thus must be discharged in good coco. Unless further information emerges that would alter the risk assessment, the patient's rights must be respected. KAMI HOUSER DO Nov 29, 2018 21:51
[2018-11-29 22:18] VITALS: BP 143/96
== END 2018-11-29 22:19 | disposition home or self-care (01) ==
LOC: M ED 19:00
DX: F43.20 Adjustment disorder, unspecified (principal); F17.210 Nicotine dependence, cigarettes, uncomplicated; F41.0 Panic disorder [episodic paroxysmal anxiety]; Z79.899 Other long term (current) drug therapy